=== PATIENT | male | born 1985 | race American Indian/Alaskan Native ===

== ENCOUNTER 2016-08-16 09:17 | Day surgery (SDC) | payer MEDICAID ==
[2013-11-28 02:10] VITALS: BMI 36.6
[2016-08-16] MEDS ORDERED: Lactated Ringer's 500 ML IV ONE (09:27)
[2016-08-16] MEDS ORDERED: Propofol 10 mg/ml Inj (20 ML) ONE (10:13)
[2016-08-16 10:50] VITALS: BP 120/68; PULSE 92; RESP 23; TEMP 98; O2SAT 100
== END 2016-08-16 11:03 | disposition home or self-care (01) ==
LOC: H.ENDO 09:17
PROVIDERS: ATTEND Internal Medicine Gastroenterology
DX: R10.13 Epigastric pain (principal); I10 Essential (primary) hypertension; K29.70 Gastritis, unspecified, without bleeding; G47.30 Sleep apnea, unspecified